=== PATIENT | female | born 1960 | race Two or more races ===

== ENCOUNTER 2016-05-23 12:29 | Emergency (ER) | payer MEDICARE ==
[2016-05-23] MEDS ORDERED: IOPAMIDOL 370 (76%) IV.SOLN 150 ML IV ONE (12:30)
[2016-05-23] MEDS ORDERED: DIPHENHYDRAMINE HCL 50 MG/1 ML VIAL ONE (13:30)
[2016-05-23] MEDS ORDERED: LACTATED RINGERS 1,000 ML ONE (13:30)
[2016-05-23] MEDS ORDERED: METOCLOPRAMIDE HCL 5 MG/ML 2ML VIAL ONE (13:30)
[2016-05-23 13:53] LABS: ABSOLUTE NEUTROPHIL COUNT 3.2 K/mm3 (1.8-7.7); BASO % 0.7 % (0.2-1.0); EOS # 0.2 (0.0-0.5); EOS % 2.8 % (0.9-2.9); HEMATOCRIT 42.5 % (37.0-47.0); HEMOGLOBIN 13.7 gm/l (12.0-16.0); IMM NEUT% 0.2 % (0-1); LYMPH # 2.2 (1.0-4.8); LYMPH % 35.9 % (15-45); MEAN CELL VOLUME 87.3 fl (81.0-99.0); MEAN CORPUSCULAR HEMOGLOBIN 28.1 pg (27.0-31.0); MEAN CORPUSCULAR HGB CONC 32.2 g/dl (33.0-37.0); MEAN PLATELET VOLUME 11.3 fl (7.4-10.4); MONO # 0.5 (0.0-0.8); MONO % 8.1 % (4-12); NEUT % 52.3 % (43-75); PLATELET COUNT 221 K/mm3 (130-400); RED CELL DISTRIBUTION WIDTH 13.3 % (11.5-14.5)
[2016-05-23 14:00] LABS: SPECIFIC GRAVITY 1.015 (1.001-1.030); URINE BILIRUBIN NEGATIVE (NEGATIVE); URINE BLOOD TRACE (NEGATIVE); URINE GLUCOSE (UA) NEGATIVE (NEGATIVE); URINE LEUKOCYTE ESTERASE 2+ (NEGATIVE); URINE NITRITE POSITIVE (NEGATIVE); URINE PROTEIN NEGATIVE (NEGATIVE); URINE UROBILINOGEN NORMAL (0-1 mg/dl)
[2016-05-23 14:01] LABS: URINE APPEARANCE CLOUDY; URINE COLOR YELLOW
[2016-05-23 14:09] LABS: URINE WBC >100 /hpf
[2016-05-23 14:10] LABS: URINE BACTERIA 4+; URINE EPITHELIAL CELLS 0-2 /hpf
[2016-05-23 14:52] LABS: ALBUMIN 3.9 gm/dL (3.5-5.7); CALCIUM 9.4 mg/dL (8.6-10.3); MAGNESIUM 1.8 mg/dL (1.9-2.7)
--- NOTE | 2016-05-23 15:28 | CT ---
Exam: CT head without contrast COMPARISON: None INDICATION: Headache and paresthesias. TECHNIQUE: CT examination of the head was obtained without contrast. FINDINGS: There is no acute intracranial hemorrhage. There is no abnormal intra or extra-axial fluid collection. There is no edema, mass effect or midline shift. There is a least a partially empty sella. Ventricles are normal in size. Visualized paranasal sinuses and mastoid air cells are well aerated. IMPRESSION: No acute intracranial abnormality. Report was uploaded to the EMR at 1524 hours 05/23/2016.
--- NOTE | 2016-05-23 15:38 | CT ---
Exam: CT abdomen and pelvis with contrast COMPARISON: Lumbar spine radiographs 11/29/2014 INDICATION: Left lower quadrant pain, blood in stool, possible mass below the umbilicus. TECHNIQUE: CT examination of the abdomen and pelvis was obtained following the administration 100 mL Isovue-370 intravenous contrast. FINDINGS: Urinary bladder is moderately distended. The uterus is absent. There is no adnexal mass. Numerable surgical clips are identified within the pelvis and inferior retroperitoneum, presumably related to lymph node dissection. There is no significant pelvic or retroperitoneal lymphadenopathy by size criteria. The bowel, including the appendix, is unremarkable and there is no bowel obstruction, free air or free intraperitoneal fluid. Tiny fat-containing periumbilical hernia is noted. Upper abdomen is slightly limited due to motion artifact. No liver lesions are identified. Spleen is normal in size. There is no adrenal mass. Gallbladder is present within normal limits. Small renal cysts are noted bilaterally. There is no hydronephrosis or solid renal mass. The pancreas is unremarkable. Atheromatous plaques are seen within the nonaneurysmal distal abdominal aorta and iliac arteries. There is a 5 mm nodule within the left lower lobe which is of uncertain chronicity given lack of comparisons. Lung bases otherwise clear. There is grade 1 anterolisthesis of L4-L5 related to underlying facet arthropathy. No worrisome lytic or blastic osseous lesion is identified. IMPRESSION: 1. 5 mm nodule in the left lower lobe which is of uncertain chronicity given lack of comparisons. Recommend correlation with outside exams if available to confirm stability. Otherwise, nonemergent CT examination of the chest is recommended to evaluate for additional pulmonary nodules which will determine follow-up interval. 2. No acute findings identified to explain patient's symptoms. 3. Postsurgical changes of hysterectomy and pelvic lymph node dissection. There is no adnexal mass. 4. No mass is identified below the level of the umbilicus. Tiny fat-containing periumbilical hernia is noted. Report called to Dr. Deluca 3452 hours 05/23/2016.
== END 2016-05-23 16:22 | disposition home or self-care (01) ==
LOC: ED 12:29
DX: G43.109 Migraine with aura, not intractable, without status migrainosus (principal); N39.0 Urinary tract infection, site not specified; R10.32 Left lower quadrant pain; I10 Essential (primary) hypertension; E11.9 Type 2 diabetes mellitus without complications; Z79.84 Long term (current) use of oral hypoglycemic drugs; Z79.4 Long term (current) use of insulin
CPT/HCPCS: 83690; 85025; 87086; 80053; 87186; 83735; 84484; 81001; 74177; 70450; 96375; 99284 ×2; 96374; 96361; J1200; J2765; J7120; Q9967